=== PATIENT | male | born 1990 | race Caucasian/White ===

== ENCOUNTER 2018-02-08 23:00 | Emergency (ER) | payer OTHER ==
[2018-02-08 23:08] VITALS: BP 143/92; PULSE 105; RESP 16; TEMP 98.8; O2SAT 95
--- NOTE | 2018-02-08 23:28 | EDPHY ---
H & P Stated Complaint: L PALM LAC/GLASS WORK Time Seen by Provider: 02/08/18 23:42 HPI/ROS: HPI CHIEF COMPLAINT: Left hand laceration HISTORY OF PRESENT ILLNESS: Patient 27-year-old male, otherwise healthy no significant medical history he has tetanus shot is up-to-date, presents emergency room with left palmar laceration. 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 He sustained on the palmar aspect ulnar side a 5 cm horizontally oriented laceration. There is no arterial or tendon involvement. No bony involvement. No foreign body visualized. Neurovascular intact otherwise. Past Medical History: No medical history Past Surgical History: No surgical history Social History: Denies drugs alcohol tobacco. Family History: Noncontributory ROS REVIEW OF SYSTEMS: A comprehensive 10 point review of systems is otherwise negative aside from elements mentioned in the history of present illness. Exam Constitutional triage nursing summary reviewed, vital signs reviewed, awake/ alert. Eyes normal conjunctivae and sclera, EOMI, PERRLA. HENT normal inspection, atraumatic, moist mucus membranes, no epistaxis, neck supple/ no meningismus, no raccoon eyes. Respiratory clear to auscultation bilaterally, normal breath sounds, no respiratory distress, no wheezing. Cardiovascular rate normal, regular rhythm, no murmur, no edema, distal pulses normal. Gastrointestinal soft, non-tender, no rebound, no guarding, normal bowel sounds, no distension, no pulsatile mass. Genitourinary no CVA tenderness. Musculoskeletal no midline vertebral tenderness, full range of motion, no calf swelling, no tenderness of extremities, no meningismus, good pulses, neurovascularly intact. Skin left hand: Palmar side, ulnar side, base of the left hand shows a 5 cm horizontally oriented laceration. There was no arterial vomit. No tendon involvement. No bony involvement. The wound was copiously irrigated and explored. There was no foreign bodies visualized. Full range of motion full function left hand. Neurologic awake, alert and oriented x 3, AAOx3, moves all 4 extremities equally, motor intact, sensory intact, CN II-XII intact, normal cerebellar, normal vision, normal speech. Psychiatric normal mood/affect. Heme/Lymph/Immune no lymphadenopathy. Differential Diagnosis: Includes but is not limited to in a particular order left hand laceration, left hand soft tissue injury, tendon injury, arterial injury, bony abnormality, retained foreign body. Medical Decision Making: Plan for this patient copiously clean and irrigate the left hand. We explored for foreign bodies. And repairing close the wound. Tetanus shot is up-to-date. Re-evaluation: Laceration Repair Procedure: Verbal Consent was obtained, Under sterile conditions, The patient had lidocaine with epinephrine used approximately 5ccs to local anesthetize the Left hand palmar side, ulnar side, 5CM horizontal Laceration. The wound was copiously irrigated with sterile fluid, the wound was explored for foreign bodies there were none visualized, the wound was explored with a sterile glove to the base. There are no deep structures involved, including no arterial injury. FIVE 6.O PROLENE interrupted Sutures were placed in this patient's laceration. He had good close approximation of the wound edges. He Tolerated this well. Patient understands to have sutures removed in 12-14 days. Watch for signs of infection. Keep wound clean, dry and intact and watch for infection. Patient understands. Source: Patient - Personal History Current Tetanus Diphtheria and Acellular Pertussis (TDAP): Unsure - Medical/Surgical History Hx Asthma: No Hx Chronic Respiratory Disease: No Hx Diabetes: No Hx Cardiac Disease: No Hx Renal Disease: No Hx Cirrhosis: No Hx Alcoholism: No Hx HIV/AIDS: No Hx Splenectomy or Spleen Trauma: No Other PMH: DENIES - Social History Smoking Status: Heavy smoker Constitutional: Initial Vital Signs Temperature (C) 37.1 C 02/08/18 23:06 Heart Rate 105 H 02/08/18 23:06 Respiratory Rate 16 02/08/18 23:06 Blood Pressure 143/92 H 02/08/18 23:06 O2 Sat (%) 95 02/08/18 23:06 O2 Delivery Mode Room Air Allergies/Adverse Reactions: No Known Allergies Allergy (Unverified 02/08/18 23:06) Home Medications: Medication Instructions Recorded AMOXICILLIN 02/08/18 Departure - Departure Disposition: Home, Routine, Self-Care Condition: Good Instructions: Laceration (ED), Care For Your Stitches (ED) Additional Instructions: Please have your sutures removed in 12-14 days. Watch for signs of infection. This included redness, swelling, pus, drainage. Keep wound clean, dry and intact and watch for infection. You may get warm soapy water over the wound after [address] not instill or place anything in the wound. Referrals: NONE *PRIMARY CARE P,. [Primary Care Provider] - As per Instructions
== END 2018-02-09 00:04 | disposition home or self-care (01) ==
PROC: 0HQGXZZ Repair Left Hand Skin, External Approach (ICD-10-PCS; principal; 2018-02-08)
DX: S61.412A Laceration without foreign body of left hand, initial encounter (principal); F17.200 Nicotine dependence, unspecified, uncomplicated; W25.XXXA Contact with sharp glass, initial encounter

== ENCOUNTER 2018-02-11 16:52 | Emergency (ER) | payer OTHER ==
[2018-02-11 16:56] VITALS: BP 137/86; PULSE 96; RESP 17; TEMP 98.4; O2SAT 94
--- NOTE | 2018-02-11 17:06 | EDPHY ---
H & P Stated Complaint: stitches 02/08 in ed/new swelling /pain Time Seen by Provider: 02/11/18 17:06 HPI/ROS: Chief Complaint: Laceration recheck HPI: The patient presents to the ED for a recheck of of his right hand laceration. The patient did notice some mild serosanguineous drainage from the laceration earlier today. The patient's laceration occurred at work 3 days ago and he was seen in the emergency department on Saturday and underwent laceration repair. The patient denies any erythema, lymphangitic changes or fever. He denies significant pain. He has no acute swelling REVIEW OF SYSTEMS: Neuro: no headache, numbness, weakness Musculoskeletal: as above Skin: As above Source: Patient - Personal History Current Tetanus/Diphtheria Vaccine: Yes - Medical/Surgical History Hx Asthma: No Hx Chronic Respiratory Disease: No Hx Diabetes: No Hx Cardiac Disease: No Hx Renal Disease: No Hx Cirrhosis: No Hx Alcoholism: No Hx HIV/AIDS: No Hx Splenectomy or Spleen Trauma: No Other PMH: DENIES - Social History Smoking Status: Heavy smoker - Physical Exam Exam: Skin: Healing laceration noted on the right hand, no surrounding erythema, fluctuance or discharge appreciated Musculoskeletal: No focal tenderness to palpation Extremities: symmetrical, full range of motion Constitutional: Initial Vital Signs Temperature (C) 36.9 C 02/11/18 16:53 Heart Rate 96 02/11/18 16:53 Respiratory Rate 17 02/11/18 16:53 Blood Pressure 137/86 H 02/11/18 16:53 O2 Sat (%) 94 02/11/18 16:53 O2 Delivery Mode Room Air Allergies/Adverse Reactions: No Known Allergies Allergy (Verified 02/11/18 16:53) Home Medications: Medication Instructions Recorded AMOXICILLIN 02/08/18 Medical Decision Making ED Course/Re-evaluation: The patient underwent a laceration recheck. I have reinforced laceration with Dermabond. There is no evidence of cellulitis, dehiscence or an abscess. Departure - Departure Disposition: Home, Routine, Self-Care Clinical Impression: LACERATION RE-CHECK Condition: Good Instructions: Laceration (ED) Additional Instructions: 1. Return to emergency department in 10 days for suture removal. 2. Return to the ED sooner for increasing pain, redness, swelling or other concerns. Referrals: NONE *PRIMARY CARE P,. [Primary Care Provider] - As per Instructions
[2018-02-11] MEDS ORDERED: SKIN ADHESIVE (DERMABOND) 1 EACH TP ONE (17:24)
== END 2018-02-11 17:46 | disposition home or self-care (01) ==
DX: Z48.01 Encounter for change or removal of surgical wound dressing (principal); F17.200 Nicotine dependence, unspecified, uncomplicated